=== PATIENT | female | born 1955 | race Caucasian/White ===

== ENCOUNTER 2021-08-31 12:28 | Inpatient (IN) | payer MEDICARE, BC ==
[~2021-08-31] VITALS: Ht 147.3 cm; Wt 51.3 kg
--- NOTE | 2021-08-31 12:50 | NUR ---
Note simeon in EDM - 08/31/21 at 1459 by ROSS PATIENT CAME INTO THE ED FROM HOME WITH A C/C OF NAUSEA AND VOMITING FOR THE PAST 2 DAYS. PATIENT HAS NO KNOWN MEDICAL HISTORY. PATIENT SKIN LOOKS DRY UPON ASSESSMENT. PATIENT IS IN GOWN, ON MONITORS, AAOX4, NO VOMITING SINCE BEING ADMITTED TO THE ED, BUT REPORTS NAUSEA. 20 G ESTABLISHED IN HER RIGHT WRIST AND LINE IS PATENT. PENDING MD ORDERS.
--- NOTE | 2021-08-31 13:32 | NUR ---
EKG PERFOMED AT BEDSIDE.
[2021-08-31] MEDS ORDERED: FENTANYL CITRATE 100 MCG/2 ML AMPUL IV ONE (13:45)
[2021-08-31] MEDS ORDERED: IV NORMAL SALINE 1000 ML BAG IV ONE (13:45)
[2021-08-31] MEDS ORDERED: ONDANSETRON 4 MG/2 ML VIAL IV ONE (13:45)
[2021-08-31] MEDS ORDERED: ONDANSETRON 4 MG/2 ML VIAL ONE (14:06)
[2021-08-31] MEDS ORDERED: FENTANYL CITRATE 100 MCG/2 ML AMPUL ONE (14:06)
[2021-08-31 14:34] LABS: HEMATOCRIT 39.8 % (31.2-41.9); MEAN CORPUSCULAR HEMOGLOBIN 29.8 uug (24.7-32.8); MEAN CORPUSCULAR VOLUME 88.3 fL (75.5-95.3); PLATELET COUNT (AUTO) 215 K/uL (179-408)
--- NOTE | 2021-08-31 14:38 | NUR ---
PATIENT DISCHARGED HOME WIHT LEG BAG, AND TO FOLLOW UP WITH UROLOGIST IN THE NEXT COUPLE OF DAYS AND TO RETURN TO THE ED IF THE PROBLEM PERSISTS. PATIENT IS AMBULATORY WITH A STEADY GAIT, AAOX4, DENIES SHORTNESS OF BREATH, NAD NOTED, DENIES N/V/D. IV DC'D, ARMBAND REMOVED. PT IS BEING ACCOMPANIED BY DAUGHTER TO GO HOME WITH BELONGINGS.
[2021-08-31 14:39] LABS: CREATININE 4.4 mg/dL (0.6-1.3); POTASSIUM 4.6 mmol/L (3.5-5.1)
[2021-08-31 14:53] LABS: BILIRUBIN,DIRECT 0.2 mg/dL (0.0-0.2); BILIRUBIN,TOTAL 0.9 mg/dL (0.2-1.0); TOTAL PROTEIN, SERUM 5.3 g/dL (6.4-8.2)
[2021-08-31] MEDS ORDERED: VANCOMYCIN 1G/D5W 200 ML PIGGYBACK IV ONE (15:00)
[2021-08-31] MEDS ORDERED: PIPERACILLIN SODIUM/TAZOBACTAM 3.375 G in IV DEXTROSE 5% 50 ML IV ONE (15:00)
[2021-08-31] MEDS ORDERED: METRONIDAZOLE 500 MG/NS 100 ML PIGGYBACK IV ONE (15:00)
[2021-08-31] MEDS ORDERED: IV NS 1000 ML 1,000 ML IV ONE (15:00)
--- NOTE | 2021-08-31 15:20 | NUR ---
PATIENT TO CT SCAN.
[2021-08-31 15:22] LABS: *OCCULT BLOOD STOOL POSITIVE (NEGATIVE)
[2021-08-31] MEDS ORDERED: METRONIDAZOLE 500 MG/NS 100ML 100 ML IV ONE ×2 (15:36→23:06)
[2021-08-31] MEDS ORDERED: VANCOMYCIN IV 200 ML ONE (15:37)
[2021-08-31] MEDS ORDERED: PIPERACILLIN/TAZOBACTAM/D5W 50 ML IV ONE (15:37)
--- NOTE | 2021-08-31 15:40 | NUR ---
PATIENT RETURNED FROM CT SCAN. PENDING RESULTS
--- NOTE | 2021-08-31 15:43 | NUR ---
1ST ANTIBIOITIC OUT OF THREE ADMINISTERED.
[2021-08-31] MEDS ORDERED: MAGNESIUM HYDROXIDE 30 ML LIQUID UDC PO PRN (15:45)
[2021-08-31] MEDS ORDERED: Z GUARD REMEDY PASTE 57 GM TUBE TOP PRN (15:45)
[2021-08-31] MEDS ORDERED: ONDANSETRON 4 MG/2 ML VIAL IV PRN (15:45)
[2021-08-31] MEDS ORDERED: IV NS 1000 ML 1,000 ML IV PRN ×2 (15:45→18:46)
--- NOTE | 2021-08-31 15:56 | NUR ---
2ND OUT OF THREE ANTIBIOTICS ADMINISTERED.
--- NOTE | 2021-08-31 16:49 | NUR ---
3 OUT OF 3 ANTIBIOTICS ADMINISTERED.
--- NOTE | 2021-08-31 17:04 | NUR ---
PATIENT REPORTS HAVING MULTIPLE STOOLS. WILL NOTIFY
[2021-08-31] MEDS ORDERED: METOCLOPRAMIDE HCL 10 MG/2 ML VIAL IV PRN (17:30)
[2021-08-31] MEDS ORDERED: LOPERAMIDE HCL 2 MG CAPSULE PO ONE (18:00)
--- NOTE | 2021-08-31 18:00 | NUR ---
STOOL SAMPLE COLLECETED AND SENT TO LAB FOR TESTING. PENDING RESULTS
[2021-08-31] MEDS ORDERED: LOPERAMIDE HCL 2 MG CAPSULE ONE (18:08)
--- NOTE | 2021-08-31 18:16 | NUR ---
ANTIDIARRHEAL MEDICATION ADMINISTERED. WILL OBSERVE FOR CONTINUING OF STOOLS.
--- NOTE | 2021-08-31 19:12 | NUR ---
REPORT GIVEN TO TERENCE, ALL QUESTIONS ANSWERED, CONTINUITY OF CARE CONTINUED.
[2021-08-31] MEDS ORDERED: PANTOPRAZOLE SODIUM 40 MG VIAL ONE (23:06)
[2021-08-31] MEDS: METRONIDAZOLE 500 MG/NS 100ML 500 MG in PREMIXED 1 EACH IV SCH (23:15)
[2021-08-31] MEDS: PANTOPRAZOLE SODIUM 40 MG VIAL IV SCH (23:15)
[2021-08-31] MEDS: ACIDOPHILUS/BULGARICUS CHEW TAB PO SCH (23:28)
--- NOTE | 2021-09-01 00:40 | NUR ---
Pt started on 1L NS continous infusion at 100mls/hr due to bp of 96/45
[2021-09-01] MEDS ORDERED: METOCLOPRAMIDE HCL 10 MG/2 ML VIAL ONE (00:51)
--- NOTE | 2021-09-01 01:00 | NUR ---
Pt bp elevated to 107/52, 20 minutes after infusion started, will continue to assess
[2021-09-01] MEDS: ACIDOPHILUS/BULGARICUS CHEW TAB PO SCH ×3 (06:00→23:20)
[2021-09-01] MEDS: METRONIDAZOLE 500 MG/NS 100ML 500 MG in PREMIXED 1 EACH IV SCH ×3 (06:00→23:30)
[2021-09-01 07:16] LABS: HEMATOCRIT 40.9 % (31.2-41.9); MEAN CORPUSCULAR HEMOGLOBIN 29.8 uug (24.7-32.8); MEAN CORPUSCULAR VOLUME 89.4 fL (75.5-95.3); PLATELET COUNT (AUTO) 197 K/uL (179-408)
[2021-09-01 07:22] LABS: BILIRUBIN,DIRECT 0.2 mg/dL (0.0-0.2); BILIRUBIN,TOTAL 0.8 mg/dL (0.2-1.0); CREATININE 4.4 mg/dL (0.6-1.3); MAGNESIUM 2.8 mg/dL (1.8-2.4); POTASSIUM 4.8 mmol/L (3.5-5.1)
[2021-09-01] MEDS ORDERED: METRONIDAZOLE 500 MG/NS 100ML 100 ML IV ONE ×3 (08:44→23:33)
[2021-09-01] MEDS: PANTOPRAZOLE SODIUM 40 MG VIAL IV SCH ×2 (09:00→23:30)
[2021-09-01] MEDS ORDERED: CIPROFLOXACIN IV 400 MG in PREMIXED 1 EACH IV SCH (09:00)
[2021-09-01] MEDS: CALCIUM CARBONATE 500 MG TABLET PO SCH (09:02)
--- NOTE | 2021-09-01 09:04 | NUR ---
pt's heplock stopped working, unable to heplock the pt. called nsg supervisor display fabrication for midline
--- NOTE | 2021-09-01 10:19 | NUR ---
rolando Dukes placed midline right uper arm
[2021-09-01] MEDS ORDERED: PANTOPRAZOLE SODIUM 40 MG VIAL ONE ×2 (10:31→23:32)
--- NOTE | 2021-09-01 11:30 | NUR ---
PER SHLOMO HAN, CORPORATE GENERAL MANAGER, PT WILL GOING FOR COLONOSCOPY TOMORROW WITH DR. OCAMPO.
--- NOTE | 2021-09-01 11:30 | NUR ---
SHLOMO HAN CAR COOPER AT BEDSIDE.
[2021-09-01] MEDS: VANCOMYCIN FOR PO/GT/NG USE PO SCH ×2 (12:14→18:33)
[2021-09-01] MEDS ORDERED: IV D5/ 0.9% NACL 1,000 ML IV PRN (16:15)
--- NOTE | 2021-09-01 18:30 | NUR ---
clear liquid provided for pt. pt not having apetite.
--- NOTE | 2021-09-01 19:19 | NUR ---
pt remained comfortable in bed the whole er stay. perineal hygine provided multiple time, the last one at 1700 with loose yellow stool. c-diff precautions implemented.
--- NOTE | 2021-09-01 22:31 | NUR ---
Pt refusinf rectal tube and cartagena catheter insertion.
--- NOTE | 2021-09-01 22:35 | NUR ---
Report given to Em ALLISON
--- NOTE | 2021-09-01 22:37 | NUR ---
Em ALLISON from 3rd floor send home due emergency, pt will continue to receive care in ER
--- NOTE | 2021-09-01 23:30 | NUR ---
Pt placed in hospital bed, comfortable in bed.
[2021-09-02] MEDS: VANCOMYCIN FOR PO/GT/NG USE PO SCH ×5 (00:37→23:22)
--- NOTE | 2021-09-02 01:52 | NUR ---
Pt in bed asleep, no distress noted
--- NOTE | 2021-09-02 04:37 | NUR ---
Pt still asleep in bed, no distress noted
[2021-09-02] MEDS ORDERED: METRONIDAZOLE 500 MG/NS 100ML 100 ML IV ONE (06:38)
[2021-09-02] MEDS: METRONIDAZOLE 500 MG/NS 100ML 500 MG in PREMIXED 1 EACH IV SCH ×3 (06:39→21:03)
[2021-09-02] MEDS: ACIDOPHILUS/BULGARICUS CHEW TAB PO SCH ×3 (06:39→21:03)
[2021-09-02 06:50] VITALS: BP 112/41
[2021-09-02 08:08] LABS: HEMATOCRIT 37.1 % (31.2-41.9); MEAN CORPUSCULAR HEMOGLOBIN 29.5 uug (24.7-32.8); PLATELET COUNT (AUTO) 177 K/uL (179-408)
[2021-09-02 08:21] LABS: CREATININE 4.1 mg/dL (0.6-1.3); POTASSIUM 4.7 mmol/L (3.5-5.1)
[2021-09-02] MEDS: PANTOPRAZOLE SODIUM 40 MG VIAL IV SCH (09:16)
[2021-09-02] MEDS: CALCIUM CARBONATE 500 MG TABLET PO SCH (09:16)
[2021-09-02] MEDS ORDERED: GOLYTELY 4000 ML BOTTLE PO ONE (11:00)
[2021-09-02 11:10] VITALS: BP 115/54
[2021-09-02] MEDS: SODIUM BICARBONATE 8.4% 50 MEQ in IV NS 1000 ML 1,000 ML IV PRN ×2 (13:06→23:19)
[2021-09-02 15:09] VITALS: BP 112/59
[2021-09-02 20:00] VITALS: BP 137/61
[2021-09-02] MEDS: PANTOPRAZOLE ORAL SUSPENSION 40 MG SUSPDR.PKT PO SCH (20:53)
--- NOTE | 2021-09-02 22:30 | NUR ---
Received pt resting in bed. AAO x4. No acute distress noted. Denies pain/ discomfort. Denies N/V. Pt still drinking Golytely for her colonoscopy tomorrow. NPO except meds after midnight. CHEPE midline, patent and intact. Safety measures maintained. Call light and personal items within reach. Will continue to monitor.
--- NOTE | 2021-09-03 | NUR ---
Notified [facility] that pt unable to finish Golytely, and FILLER PICKER stated that it is okay not to finish. Pt to be NPO.
[2021-09-03 04:00] VITALS: BP 125/64
[2021-09-03] MEDS: VANCOMYCIN FOR PO/GT/NG USE PO SCH ×3 (05:16→17:36)
[2021-09-03] MEDS: METRONIDAZOLE 500 MG/NS 100ML 500 MG in PREMIXED 1 EACH IV SCH ×3 (05:16→22:11)
[2021-09-03] MEDS: ACIDOPHILUS/BULGARICUS CHEW TAB PO SCH ×3 (05:16→22:13)
[2021-09-03 08:09] LABS: HEMATOCRIT 37.6 % (31.2-41.9); MEAN CORPUSCULAR HEMOGLOBIN 29.8 uug (24.7-32.8); MEAN CORPUSCULAR VOLUME 89.1 fL (75.5-95.3); PLATELET COUNT (AUTO) 143 K/uL (179-408)
[2021-09-03 08:44] LABS: CREATININE 3.3 mg/dL (0.6-1.3); POTASSIUM 4.2 mmol/L (3.5-5.1)
[2021-09-03] MEDS: PANTOPRAZOLE ORAL SUSPENSION 40 MG SUSPDR.PKT PO SCH ×2 (09:11→20:08)
[2021-09-03] MEDS: CALCIUM CARBONATE 500 MG TABLET PO SCH (09:11)
[2021-09-03 12:00] VITALS: BP 116/60
--- NOTE | 2021-09-03 13:06 | NUR ---
Patient is alert and oriented x 4, denies of any pain. on NPO except meds and patient is compliant, patient refused to finish GOLYTELY and MD is aware. Consent for Colonoscopy has been signed. Picked up by OR nurse for colonoscopy. CHEPE midline intact.
[2021-09-03] MEDS ORDERED: PROPOFOL 200 MG/20 ML BOTTLE IV ONE (14:29)
[2021-09-03] MEDS ORDERED: LIDOCAINE-MPF 2% 5 ML VIAL IJ ONE (14:29)
--- NOTE | 2021-09-03 15:11 | NUR ---
Patient back to the unit from colonoscopy procedure, no new order, patient will be on clear liquid diet per Chantal RODAS and will continue to monitor. Family at bedside and was able to speak to Chantal Arellano NP.
--- NOTE | 2021-09-03 15:17 | NUR ---
Per Dr. Gomes to resume all meds.
[2021-09-03 16:00] VITALS: BP 132/65
[2021-09-03] MEDS: SODIUM BICARBONATE 8.4% 50 MEQ in IV NS 1000 ML 1,000 ML IV PRN (17:22)
[2021-09-03 20:33] VITALS: BP 121/59
[2021-09-04] MEDS: VANCOMYCIN FOR PO/GT/NG USE PO SCH ×4 (00:12→17:59)
[2021-09-04] MEDS: SODIUM BICARBONATE 8.4% 50 MEQ in IV NS 1000 ML 1,000 ML IV PRN (03:55)
[2021-09-04] MEDS: ACIDOPHILUS/BULGARICUS CHEW TAB PO SCH ×3 (05:00→22:26)
[2021-09-04] MEDS: METRONIDAZOLE 500 MG/NS 100ML 500 MG in PREMIXED 1 EACH IV SCH (05:00)
[2021-09-04 08:04] LABS: MEAN CORPUSCULAR HEMOGLOBIN 29.7 uug (24.7-32.8); PLATELET COUNT (AUTO) 112 K/uL (179-408)
[2021-09-04 08:18] LABS: CREATININE 2.2 mg/dL (0.6-1.3); POTASSIUM 3.7 mmol/L (3.5-5.1)
[2021-09-04] MEDS: PANTOPRAZOLE ORAL SUSPENSION 40 MG SUSPDR.PKT PO SCH ×2 (09:13→20:50)
[2021-09-04] MEDS: CALCIUM CARBONATE 500 MG TABLET PO SCH (09:13)
[2021-09-04 11:26] LABS: BAND % (MANUAL) 7 % (0-10); LYMPHOCYTES % (MANUAL) 15 % (20-40); MONOCYTES % (MANUAL) 5 % (2-10); MYELOCYTES % 1 % (0-0); NEUTROPHILS % (MANUAL) 72 % (42-75)
[2021-09-04 11:34] VITALS: BP 120/66
[2021-09-04] MEDS: IV D5 1/2 NS 1000 ML 1,000 ML IV PRN ×2 (12:02→22:54)
[2021-09-04] MEDS: METRONIDAZOLE 500 MG TABLET PO SCH ×2 (13:03→22:26)
[2021-09-04 16:00] VITALS: BP 113/52
--- NOTE | 2021-09-04 16:06 | NUR ---
pt is a little anxious about her condition and wants to talk to psychiatrist. informed lab aid keh with order for psych consult and xanax 0.25mg q6 prn noted and carried out. patient made aware.
[2021-09-04] MEDS: ENSURE ENLIVE (VAN) 240 ML LIQUID PO SCH (17:59)
--- NOTE | 2021-09-04 18:36 | NUR ---
pt awake in bed, family visiting at this time. no resp distress. denies pain or sob. provided calm and quiet environment. needs attended to. on flagyl and voncocin po. no adverse/allergic rxn noted. denies nausea or vomiting. fc intact draining yellow urine. safety measures in place. needs attended to. cont to monitor.
--- NOTE | 2021-09-04 19:30 | NUR ---
RECEIVED PT AWAKE, ALERT AND ORIENTEDX4. PT IN NO ACUTE DISTRESS. IV INTACT. SAFETY AND COMFORT PROVIDED. WILL CONTINUE TO MONITOR. PT FAMILY AT BEDSIDE. TALKED WITH FAMILY MEMBER REGARDING UPDATE WITH THEIR MOM.
[2021-09-04] MEDS: ALPRAZOLAM 0.25 MG TABLET PO PRN (20:50)
--- NOTE | 2021-09-04 21:50 | NUR ---
PT GIVEN XANAX AT 2050H FOR ANXIETY AND PT REQUESTED FOR IT. AFTER AN HOUR PT STATED SHE FELT BETTER. PT STABLE. WILL CONTINUE TO MONITOR.
[2021-09-04 23:02] VITALS: BP 117/52
[2021-09-05] MEDS: VANCOMYCIN FOR PO/GT/NG USE PO SCH ×5 (01:01→23:09)
[2021-09-05] MEDS: ACETAMINOPHEN 325 MG TABLET PO PRN ×2 (05:37→20:25)
[2021-09-05] MEDS: ACIDOPHILUS/BULGARICUS CHEW TAB PO SCH ×3 (05:37→21:15)
[2021-09-05] MEDS: METRONIDAZOLE 500 MG TABLET PO SCH ×3 (05:37→21:15)
--- NOTE | 2021-09-05 06:34 | NUR ---
PT GIVEN TYLENOL PRN AT 0537H FOR PAIN. PT TOLERATED IT WELL.
--- NOTE | 2021-09-05 06:35 | NUR ---
PT SLEPT INTERMITTENTLY. IV INTACT. PT ON GTUBE FEEDING AND TOLERATING WELL. PT ON 3L NASAL CANNULA. PT TURNED AND REPOSITIONED. SAFETY AND COMFORT PROVIDED. ALL NEEDS ARE MET. WILL ENDORSE TO INCOMING NURSE FOR CONTINUITY OF CARE. Addendum: 09/05/21 at 0655 by OLY CARRASCO RN WRONG PT
[2021-09-05 06:46] VITALS: BP 118/69
--- NOTE | 2021-09-05 06:56 | NUR ---
PT SLEPT INTERMITTENTLTY. PT IN NO ACUTE DISTRESS. PRESCRIBED MEDICATION GIVEN AND PT TOLERATED IT WELL. PT GIVEN TYLENOL PRN AT 0537H. IV INTACT. SAFETY AND COMFORT PROVIDED. WILL ENDORSE TO INCOMING NURSE FOR CONTINUITY OF CARE.
[2021-09-05 07:23] LABS: HEMATOCRIT 41.3 % (31.2-41.9); MEAN CORPUSCULAR HEMOGLOBIN 29.2 uug (24.7-32.8); MEAN CORPUSCULAR VOLUME 86.9 fL (75.5-95.3); PLATELET COUNT (AUTO) 99 K/uL (179-408)
--- NOTE | 2021-09-05 07:30 | NUR ---
received awake watching tv. no resp distress. denies pain or sob. cartagena intact draining yellow urine. safety measures in place. cont to monitor.
[2021-09-05 07:32] LABS: CREATININE 1.7 mg/dL (0.6-1.3); POTASSIUM 3.3 mmol/L (3.5-5.1)
[2021-09-05] MEDS: METOCLOPRAMIDE HCL 5 MG TABLET PO PRN ×2 (08:44→20:25)
[2021-09-05] MEDS ORDERED: CALCIUM CARBONATE 500 MG TABLET PO SCH (09:00)
[2021-09-05] MEDS ORDERED: POTASSIUM CHLORIDE 10 MEQ TAB.PRT.SR PO ONE (09:30)
[2021-09-05] MEDS: IV D5 1/2 NS 1000 ML 1,000 ML IV PRN (10:12)
[2021-09-05] MEDS: PANTOPRAZOLE ORAL SUSPENSION 40 MG SUSPDR.PKT PO SCH ×2 (10:46→20:54)
[2021-09-05] MEDS: CALCIUM CARBONATE 500 MG TABLET PO SCH (10:46)
[2021-09-05] MEDS: ENSURE ENLIVE (VAN) 240 ML LIQUID PO SCH ×2 (10:47→17:05)
[2021-09-05 12:00] VITALS: BP 106/63
[2021-09-05 16:00] VITALS: BP 114/61
--- NOTE | 2021-09-05 17:43 | NUR ---
family was here this morning and update on condition. full stack software developer cathi also spoke with family
--- NOTE | 2021-09-05 18:51 | NUR ---
resting in bed watching tv. had a good visit with friend this afternoon. denies pain or sob. no acute distress. safety measures kept. cont to monitor.
[2021-09-05 20:09] VITALS: BP 110/47
[2021-09-05] MEDS: DIFICID 200 MG TABLET PO SCH (21:15)
[2021-09-05] MEDS: ALPRAZOLAM 0.25 MG TABLET PO PRN (23:08)
[2021-09-06 04:12] VITALS: BP 115/50
[2021-09-06] MEDS: ACIDOPHILUS/BULGARICUS CHEW TAB PO SCH ×3 (06:04→21:39)
[2021-09-06] MEDS: VANCOMYCIN FOR PO/GT/NG USE PO SCH ×3 (06:04→17:33)
[2021-09-06] MEDS: METRONIDAZOLE 500 MG TABLET PO SCH ×3 (06:04→21:39)
[2021-09-06 08:19] LABS: HEMATOCRIT 43.5 % (31.2-41.9); MEAN CORPUSCULAR HEMOGLOBIN 29.7 uug (24.7-32.8); MEAN CORPUSCULAR VOLUME 87.8 fL (75.5-95.3); PLATELET COUNT (AUTO) 124 K/uL (179-408)
[2021-09-06 08:21] LABS: CREATININE 1.4 mg/dL (0.6-1.3); POTASSIUM 4.1 mmol/L (3.5-5.1)
[2021-09-06] MEDS: CALCIUM CARBONATE 500 MG TABLET PO SCH (10:13)
[2021-09-06] MEDS: DIFICID 200 MG TABLET PO SCH ×2 (10:13→20:23)
[2021-09-06] MEDS: CALCIUM CARB/VITAMIN D 500MG-200UNITS TABLET PO SCH (10:13)
[2021-09-06] MEDS: PANTOPRAZOLE ORAL SUSPENSION 40 MG SUSPDR.PKT PO SCH ×2 (10:37→20:23)
[2021-09-06] MEDS: ENSURE ENLIVE (VAN) 240 ML LIQUID PO SCH ×2 (11:30→17:34)
[2021-09-06] MEDS: IV D5 1/2 NS 1000 ML 1,000 ML IV PRN ×2 (11:51→21:38)
[2021-09-06 12:00] VITALS: BP 119/62
[2021-09-06 16:00] VITALS: BP 116/60
--- NOTE | 2021-09-06 17:00 | NUR ---
REMAIN ON CONTACT ISOLATION AND PRECAUTION HAS MULTIPLE DIARRHEA EPISODES ASSISTED WITH CLEAN WAS ABLE TO AMB ULATE WITH THE PHYSICAL THERAPIST WITH [facility] END[facility] IVF REMAINS IN PROGRESS ORDERED VIA MIDLINE RIGH5T UPPER ARM WITH NO S/S OF IN FILTRATION AT THIS TIME
--- NOTE | 2021-09-06 20:30 | NUR ---
Received patient lying in bed watching tv. AOX4. No acute distress noted at this time. IV midline on Right UA running D5 1/2 NS running at 100cc/hr. Reynolds catheter draining yellow colored urine. All due medications given and tolerated well. Safety and comfort measures initiated. Bed alarm activated, call light button and bedside table within reach. Will continue to monitor.
[2021-09-06 21:31] VITALS: BP 109/49
[2021-09-06] MEDS: ALPRAZOLAM 0.25 MG TABLET PO PRN (22:01)
[2021-09-07] MEDS: VANCOMYCIN FOR PO/GT/NG USE PO SCH ×5 (00:10→23:49)
[2021-09-07] MEDS: METRONIDAZOLE 500 MG TABLET PO SCH ×3 (05:01→21:44)
[2021-09-07] MEDS: ACIDOPHILUS/BULGARICUS CHEW TAB PO SCH ×3 (05:01→21:44)
--- NOTE | 2021-09-07 06:36 | NUR ---
Patient slept intermittently through the night. Patient reports abdominal pain, however, refuses to request for pain medication and resorted to non-pharmacological techniques instead. IV on right U.A still running D5 1/2 NS at 100cc/hr. Reynolds catheter draining yellow colored urine. All due medications were given and tolerated well. Patient transferred to Room 320. Will endorse to incoming nurse.
[2021-09-07 06:59] LABS: HEMATOCRIT 41.3 % (31.2-41.9); MEAN CORPUSCULAR HEMOGLOBIN 29.6 uug (24.7-32.8); MEAN CORPUSCULAR VOLUME 88.4 fL (75.5-95.3); PLATELET COUNT (AUTO) 161 K/uL (179-408)
[2021-09-07 07:10] LABS: CREATININE 1.3 mg/dL (0.6-1.3); MAGNESIUM 1.6 mg/dL (1.8-2.4); POTASSIUM 3.9 mmol/L (3.5-5.1)
[2021-09-07] MEDS: IV D5 1/2 NS 1000 ML 1,000 ML IV PRN (07:28)
[2021-09-07] MEDS: CALCIUM CARB/VITAMIN D 500MG-200UNITS TABLET PO SCH (09:18)
[2021-09-07] MEDS: CALCIUM CARBONATE 500 MG TABLET PO SCH (09:18)
[2021-09-07] MEDS: PANTOPRAZOLE ORAL SUSPENSION 40 MG SUSPDR.PKT PO SCH ×2 (09:20→20:43)
[2021-09-07] MEDS: ENSURE ENLIVE (VAN) 240 ML LIQUID PO SCH ×3 (09:23→17:38)
[2021-09-07] MEDS: DIFICID 200 MG TABLET PO SCH ×2 (09:50→20:43)
--- NOTE | 2021-09-07 10:13 | NUR ---
MAGNESSIUM LEVEL IS 1.5 SEEN BY ROBYN LEROY DAMAGE ASSESSOR WITH ORDERS AND NOTED ROBYN LEROY ALSO WANTS PATIENT PORTER CATH DISCONTINUED AND NOTED.
[2021-09-07] MEDS: MAGNESIUM SULFATE/D5W 100 ML IV SCH ×2 (10:31→12:39)
[2021-09-07 11:41] VITALS: BP 117/59
[2021-09-07] MEDS ORDERED: HYDROCODONE/APAP 5-325MG TABLET PO PRN (13:45)
[2021-09-07] MEDS ORDERED: DICYCLOMINE HCL 20 MG TABLET PO PRN (13:45)
--- NOTE | 2021-09-07 14:00 | NUR ---
PATIENT HAS AN ORDER FOR DISCHARGE TODAY BUT PATIENT AND HER DAUGHTER IS NOT AGREEING TO BE DISCHARGED TODAY AND THEY SPOKE WITH ROBYN LEROY AND THE PLAN IS THAT THE FAMILY WILL GO AND LOOK AT [facility] AND WILL THEN MAKE A DECISION WEATHER PATIENT WILL BE GOING HOME OR TO SNF IN AM.
[2021-09-07 16:26] VITALS: BP 113/60
--- NOTE | 2021-09-07 16:30 | NUR ---
CALL RECEIVED FROM STREET INSPECTOR ANAHI STATED THAT PATIENTS FAMILY HAS AGREED FOR PATIENT TO BE DISCHARGED TO [facility] TOMORROW WILL BE PICKED UP ABOUT 1100 AM BY [facility]
[2021-09-07] MEDS: PEDIATRIC ORAL ELECTROLYTE 237 ML BOTTLE PO ONE ×2 (17:00→18:18)
--- NOTE | 2021-09-07 17:53 | NUR ---
OFFERED PATIENT DYCICLOMINE ORDERED FOR ABDOMINAL SPASMS A PRN ORDER STATED DOES NOT NEED IT NOW WILL LET ME KNOW WHEN SHE NEEDS IT
--- NOTE | 2021-09-07 17:55 | NUR ---
SHE IS EATING SOUP AND FOOD BROUGHT IN BY HER FAMILY AT THE BEDSIDE WITH NO NAUSEA OR VOMITING AT THIS TIME.
[2021-09-07 20:30] VITALS: BP 107/68
[2021-09-07 20:40] VITALS: BP 115/73
[2021-09-07] MEDS: ALPRAZOLAM 0.25 MG TABLET PO PRN (22:20)
--- NOTE | 2021-09-07 22:26 | NUR ---
alpazolam dose given as per request.
[2021-09-08 04:35] VITALS: BP 115/73
--- NOTE | 2021-09-08 05:04 | NUR ---
DR Babb informed about the patient bm with blood noted.with no further orders, will continue to monitor.vital signs checked and recorded
[2021-09-08] MEDS: METRONIDAZOLE 500 MG TABLET PO SCH (06:00)
[2021-09-08] MEDS: VANCOMYCIN FOR PO/GT/NG USE PO SCH (06:08)
[2021-09-08] MEDS: ACIDOPHILUS/BULGARICUS CHEW TAB PO SCH (06:08)
--- NOTE | 2021-09-08 06:13 | NUR ---
flagyl dose not available. will request with the pharmacy
[2021-09-08 07:20] LABS: HEMATOCRIT 43.4 % (31.2-41.9); MEAN CORPUSCULAR HEMOGLOBIN 29.2 uug (24.7-32.8); MEAN CORPUSCULAR VOLUME 87.7 fL (75.5-95.3); PLATELET COUNT (AUTO) 258 K/uL (179-408)
[2021-09-08 07:24] LABS: CREATININE 1.1 mg/dL (0.6-1.3); POTASSIUM 4.4 mmol/L (3.5-5.1)
[2021-09-08] MEDS: PANTOPRAZOLE ORAL SUSPENSION 40 MG SUSPDR.PKT PO SCH (08:53)
[2021-09-08] MEDS: CALCIUM CARB/VITAMIN D 500MG-200UNITS TABLET PO SCH (08:53)
[2021-09-08] MEDS: DIFICID 200 MG TABLET PO SCH (08:53)
[2021-09-08] MEDS: ENSURE ENLIVE (VAN) 240 ML LIQUID PO SCH (08:54)
[2021-09-08] MEDS: CALCIUM CARBONATE 500 MG TABLET PO SCH (08:54)
--- NOTE | 2021-09-08 10:01 | NUR ---
CALLED [facility] AND SPOKE WITH LUCIE ALLISON, REPORT WAS GIVEN ALL QUESTIONS ANSWERED. ALL PERTINENT INFORMATION GIVEN.
--- NOTE | 2021-09-08 10:31 | NUR ---
dicharge instructions given to patient, patient states understanding. inventory list verified with patient. all paperwork signed. patient reminded to follow MD instructions "Please continue Dificid 200mg q12h, last dose 09/15/21. Please continue vancomycin 09/21/21. Please follow up with Gi specialist within 2 weeks for re-evaluation. may need prolonged vancomycin course depending on resolution of symptoms. Continue to hydrate very well and supplement with gatorade or other electrolyte drink such as pediatelyte. Start with BRAT diet and move to bland diet and advance as tolerated. Please return to emergency department immediately if any new or worsening/concerning symptoms, unable to eat or drink." patient states understanding. explained that [facility] ambulance will cotton picker patient and take her to [facility].
--- NOTE | 2021-09-08 11:15 | NUR ---
APA building contractor in unit, report given to emt all questions answered. patient left with v/s wnl, on contact precautions d/t c-diff and midline to right upper arm per md order.
[2021-09-08 11:22] VITALS: BP 121/75
== END 2021-09-08 11:20 | DRG 871 ==
LOC: ER 12:28 → TRANSITION 20:03 → TELE3 09-01 22:15 → TRANSITION 09-01 23:16 → TELE3 09-02 06:15 → MEDSURG3 09-02 08:50
PROVIDERS: ADMIT Nurse Practitioner Acute Care; ATTEND Nurse Practitioner Acute Care
PROC: 05HB33Z Insertion of Infusion Device into Right Basilic Vein, Percutaneous Approach (ICD-10-PCS; 2021-09-01)
PROC: 0DJD8ZZ Inspection of Lower Intestinal Tract, Via Natural or Artificial Opening Endoscopic (ICD-10-PCS; principal; 2021-09-03)
DX: A41.9 Sepsis, unspecified organism (principal); N17.0 Acute kidney failure with tubular necrosis; E43 Unspecified severe protein-calorie malnutrition; E87.2 Acidosis; A04.72 Enterocolitis due to Clostridium difficile, not specified as recurrent; E87.1 Hypo-osmolality and hyponatremia; K92.2 Gastrointestinal hemorrhage, unspecified; E86.0 Dehydration; E86.1 Hypovolemia; E83.51 Hypocalcemia; E88.09 Other disorders of plasma-protein metabolism, not elsewhere classified; R74.01 Elevation of levels of liver transaminase levels; Z20.822 Contact with and (suspected) exposure to COVID-19; F43.22 Adjustment disorder with anxiety
CPT/HCPCS: 36415; 70030-TC; 76770; 83605; 83615; 83690; 83735; 84100; 85025; 85730; 86625; 86850; 86900; 86901; 87046; 93005; 97161; A4217; A4663; C9113; G0378; J0744; J2405; J2543; J2765; J3010; J3370; J3475; J3490; J7030; J8597

== ENCOUNTER 2021-09-18 16:27 | Inpatient (IN) | payer MEDICARE, BC ==
[~2021-09-18] VITALS: Ht 147.3 cm; Wt 49.9 kg
[2021-09-18] MEDS ORDERED: IV NORMAL SALINE 1000 ML BAG IV ONE ×2 (16:45→17:15)
--- NOTE | 2021-09-18 16:51 | NUR ---
Pt refusing lab draw. States having had blood drawn before leaving [facility]. Called and spoke with Jenniffer, labs were drawn but not yet resulted. Will fax us results as soon as they become available.
[2021-09-18] MEDS ORDERED: ONDANSETRON 4 MG/2 ML VIAL IV ONE (17:15)
--- NOTE | 2021-09-18 17:35 | NUR ---
IV FLUIDS WITHHELD AT THIS TIME PER MD ORDER TILCHF IS RULED OUT.
--- NOTE | 2021-09-18 17:40 | NUR ---
Lab report received from [facility]. Report given to Provider.
[2021-09-18] MEDS ORDERED: IV NORMAL SALINE 250 ML IV ONE (18:23)
[2021-09-18] MEDS ORDERED: IOHEXOL 350 100 ML INFUS..BTL ONE (18:23)
[2021-09-18] MEDS ORDERED: SWABABLE VALVE TRANSFER SET EA MC ONE (18:23)
[2021-09-18] MEDS ORDERED: LORAZEPAM 2 MG/1 ML VIAL IV ONE (18:45)
[2021-09-18] MEDS ORDERED: PANT40TA49 PO (19:28)
[2021-09-18] MEDS ORDERED: VANCOMYCIN SUSP PO (19:28)
[2021-09-18] MEDS ORDERED: ALPR0.255 PO (19:28)
[2021-09-18] MEDS ORDERED: HYDR-3972 PO (19:28)
[2021-09-18] MEDS ORDERED: CALC-343 PO (19:28)
[2021-09-18] MEDS ORDERED: ACET-2154 PO (19:28)
[2021-09-18] MEDS ORDERED: LACT1CAP89 PO (19:28)
[2021-09-18] MEDS ORDERED: VANC125C11 GT (19:28)
[2021-09-18] MEDS ORDERED: DICY20TA11 PO (19:28)
[2021-09-18] MEDS ORDERED: LIDOCAINE PATCH TP (19:28)
[2021-09-18] MEDS ORDERED: CALC-168 PO (19:28)
[2021-09-18] MEDS ORDERED: LORAZEPAM 2 MG/1 ML VIAL ONE (21:30)
[2021-09-18] MEDS ORDERED: MORPHINE SULFATE 2 MG/1 ML DISP.SYRIN IV PRN (21:30)
[2021-09-18] MEDS ORDERED: HYDROCODONE/APAP 5-325MG TABLET PO PRN (21:30)
[2021-09-18] MEDS ORDERED: HYDROCORTISONE SOD SUCCINATE 100 MG/2 ML VIAL IV ONE (21:30)
[2021-09-18] MEDS ORDERED: DICYCLOMINE HCL 20 MG TABLET PO SCH (21:30)
[2021-09-18] MEDS ORDERED: DOXYCYCLINE HYCLATE IV 100 MG in IV DEXTROSE 5% 100 ML IV ONE (21:30)
[2021-09-18] MEDS ORDERED: ONDANSETRON 4 MG/2 ML VIAL IV PRN (21:30)
[2021-09-18] MEDS ORDERED: VANCOMYCIN PO SCH (21:30)
[2021-09-18] MEDS ORDERED: ACETAMINOPHEN 325 MG TABLET-SA PATIENTS-PAIN ONLY PO PRN (21:30)
[2021-09-18] MEDS ORDERED: METRONIDAZOLE 500 MG/NS 100 ML PIGGYBACK IV ONE (21:30)
[2021-09-18] MEDS ORDERED: CEFEPIME HCL 1 G in IV DEXTROSE 5% 50 ML IV ONE (21:30)
[2021-09-18] MEDS ORDERED: ALPRAZOLAM 0.25 MG TABLET PO PRN (21:30)
[2021-09-18] MEDS ORDERED: VANCOMYCIN IV 750 MG in IV DEXTROSE 5% 150 ML IV ONE (21:30)
[2021-09-18] MEDS ORDERED: ONDANSETRON 4 MG/2 ML VIAL ONE (21:31)
--- NOTE | 2021-09-18 21:57 | NUR ---
Report given to Avis ALLISON Tele.
[2021-09-18 21:59] LABS: MEAN CORPUSCULAR HEMOGLOBIN 29.4 uug (24.7-32.8); PLATELET COUNT (AUTO) 276 K/uL (179-408)
[2021-09-18 22:12] LABS: BILIRUBIN,DIRECT 0.2 mg/dL (0.0-0.2); BILIRUBIN,TOTAL 0.5 mg/dL (0.2-1.0); CREATININE 0.8 mg/dL (0.6-1.3); TOTAL PROTEIN, SERUM 4.2 g/dL (6.4-8.2)
[2021-09-18 22:22] LABS: POTASSIUM 2.6 mmol/L (3.5-5.1)
[2021-09-18] MEDS ORDERED: MAGNESIUM OXIDE 400 MG TABLET PO ONE (22:30)
[2021-09-18] MEDS ORDERED: POTASSIUM CHLORIDE 20 MEQ TAB.PRT.SR PO ONE (22:30)
[2021-09-18] MEDS ORDERED: POTASSIUM CHLORIDE 20 MEQ TAB.PRT.SR ONE (22:37)
[2021-09-18] MEDS ORDERED: MAGNESIUM OXIDE 400 MG TABLET ONE (22:38)
[2021-09-18] MEDS ORDERED: CEFEPIME HCL 1 G VIAL ONE (22:39)
[2021-09-18] MEDS ORDERED: DOXYCYCLINE HYCLATE 100 MG INJ IV ONE (23:01)
[2021-09-18] MEDS ORDERED: METRONIDAZOLE 500 MG/NS 100ML 100 ML IV ONE (23:06)
[2021-09-18] MEDS ORDERED: VANCOMYCIN HCL 500 MG VIAL ONE (23:25)
[2021-09-19] VITALS: BP 121/65
--- NOTE | 2021-09-19 00:05 | NUR ---
Arrived via gurney, AO x 4, IV intact and patent, tolerating antibiotics well, on room air saturating at 96%, able to help reposition extremities, admission routine completed. No signs of acute distress. Call lights within reach, safety measures initiated.
[2021-09-19] MEDS: IV D5 1/2 NS 1000 ML 1,000 ML IV PRN ×2 (02:00→18:28)
[2021-09-19 04:15] VITALS: BP 117/67
[2021-09-19] MEDS: CULTURELLE CAPSULE PO SCH ×3 (05:18→21:35)
--- NOTE | 2021-09-19 06:26 | NUR ---
AO x 4, on room air O2 saturating at 97%, slept throughout the night, able to state needs and have been met, compliant with medication and care, no signs of acute distress noted, denies any discomfort and pain. Call lights within reach, safety measures maintained, belongings by bedside within reach. Will endorse to am shift
[2021-09-19] MEDS ORDERED: ACETAMINOPHEN 325 MG TABLET PO PRN (06:30)
[2021-09-19 06:45] LABS: HEMATOCRIT 30.8 % (31.2-41.9); MEAN CORPUSCULAR HEMOGLOBIN 29.5 uug (24.7-32.8); MEAN CORPUSCULAR VOLUME 87.8 fL (75.5-95.3); PLATELET COUNT (AUTO) 371 K/uL (179-408)
[2021-09-19 07:11] LABS: THYROID STIMULATING HORMONE 1.413 mIU/mL (0.358-3.740)
[2021-09-19 07:14] LABS: BILIRUBIN,TOTAL 0.4 mg/dL (0.2-1.0); CREATININE 0.9 mg/dL (0.6-1.3); MAGNESIUM 1.7 mg/dL (1.8-2.4); PHOSPHOROUS 3.6 mg/dL (2.5-4.9); POTASSIUM 3.7 mmol/L (3.5-5.1); TOTAL PROTEIN, SERUM 4.9 g/dL (6.4-8.2)
--- NOTE | 2021-09-19 08:00 | NUR ---
awake alert/oriented, denies of pain, no nausea, on full liquid, explained plan of care-verbalized understanding, safety measures maintained, call light within reach
[2021-09-19] MEDS ORDERED: VANCOMYCIN FOR PO/GT/NG USE PO ONE (09:00)
[2021-09-19] MEDS: PANTOPRAZOLE SODIUM 40 MG TABLET.DR PO SCH (09:16)
[2021-09-19] MEDS: CALCIUM CARBONATE 500 MG TAB.CHEW PO SCH (09:17)
[2021-09-19] MEDS: MAGNESIUM SULFATE/D5W 100 ML IV SCH ×2 (09:56→11:15)
[2021-09-19 11:31] VITALS: BP 110/54
[2021-09-19] MEDS: CALCIUM CARB/VITAMIN D 500MG-200UNITS TABLET PO SCH (13:48)
[2021-09-19] MEDS: Z GUARD REMEDY PASTE 57 GM TUBE TOP SCH ×2 (13:49→20:33)
[2021-09-19] MEDS: VANCOMYCIN FOR PO/GT/NG USE PO SCH ×3 (13:49→23:06)
[2021-09-19] MEDS: LIDOCAINE 5% PATCH TD SCH (13:53)
--- NOTE | 2021-09-19 14:00 | NUR ---
seen by Shanon DAVIS with orders
[2021-09-19] MEDS ORDERED: [UNRECOGNIZED DRUG - OTHER] RC SCH (14:15)
--- NOTE | 2021-09-19 14:55 | NUR ---
seen by Dr Toney
[2021-09-19] MEDS ORDERED: VANCOMYCIN FOR PO/GT/NG USE PO SCH (15:00)
[2021-09-19] MEDS: [UNRECOGNIZED DRUG - OTHER] PR SCH ×2 (15:00→21:36)
--- NOTE | 2021-09-19 15:10 | NUR ---
vancomycin retention enema given- pt tolerated well enteric precaution observed
[2021-09-19 15:38] VITALS: BP 115/66
[2021-09-19 16:06] LABS: *BILIRUBIN,URIN NEGATIVE (NEGATIVE); *BLOOD, URINE 1+ (NEGATIVE); *COLOR,URINE YELLOW (YELLOW); *KETONES,URINE NEGATIVE (NEGATIVE); *UROBILINOGEN,URINE 0.2 E.U./dl (NORMAL); LEUKOCYTE ESTERASE ,URINE NEGATIVE (NEGATIVE); NITRITE, URINE NEGATIVE (NEGATIVE); UGLUCOSE NEGATIVE (NEGATIVE)
[2021-09-19 16:16] LABS: *CLARITY,URINE SLIGHTLY HAZY (CLEAR)
[2021-09-19 16:17] LABS: BACTERIA,URINE FEW /HPF (NONE SEEN); SQUAMOUS EPITHELIAL CELL,UR FEW /HPF (NONE SEEN); YEAST,URINE FEW /HPF (NONE SEEN)
[2021-09-19] MEDS: DIFICID 200 MG TABLET PO SCH (17:05)
--- NOTE | 2021-09-19 18:52 | NUR ---
no distress noted, executive personal assistant at bedside, had 6 diarrheal stools this shift, stool for c diff sent this morning, all needs attended and met, enteric precautions observed, call light within reach
[2021-09-19] MEDS ORDERED: FLUCONAZOLE 200 MG/NS 100ML IV 200 MG in PREMIXED 1 EACH IV ONE ×2 (19:30→19:54)
--- NOTE | 2021-09-19 19:35 | NUR ---
AO x 4, on room air, IV intact and patent, running IV hydration and antibiotics, no signs of acute distress noted. Call lights within reach, safety measures initiated.
[2021-09-19 20:29] VITALS: BP 112/57
--- NOTE | 2021-09-19 22:00 | NUR ---
Vancomycin retention enema done and tolerated well.
[2021-09-19] MEDS: TEMAZEPAM 15 MG CAPSULE PO PRN (22:33)
[2021-09-19 23:47] VITALS: BP 111/59
[2021-09-20] MEDS: CULTURELLE CAPSULE PO SCH ×3 (05:28→22:18)
[2021-09-20] MEDS: VANCOMYCIN FOR PO/GT/NG USE PO SCH ×4 (05:28→23:45)
[2021-09-20] MEDS: [UNRECOGNIZED DRUG - OTHER] PR SCH ×3 (05:31→22:18)
[2021-09-20 06:18] VITALS: BP 114/64
[2021-09-20 06:41] LABS: HEMATOCRIT 27.2 % (31.2-41.9); MEAN CORPUSCULAR HEMOGLOBIN 29.8 uug (24.7-32.8); MEAN CORPUSCULAR VOLUME 87.4 fL (75.5-95.3); PLATELET COUNT (AUTO) 394 K/uL (179-408)
--- NOTE | 2021-09-20 06:45 | NUR ---
Slept intermittently, AO x 4, on room air saturating at 95%, IV intact and patent, running IV hydration, no signs of acute distress. Patient refuses 0600 Vancomycin retention enema. Requests to have it at 0800. Will endorse to am shift. Call lights within reach, safety measures maintained.
[2021-09-20 06:52] LABS: CREATININE 0.8 mg/dL (0.6-1.3); MAGNESIUM 2.1 mg/dL (1.8-2.4); PHOSPHOROUS 2.5 mg/dL (2.5-4.9)
[2021-09-20 06:56] LABS: POTASSIUM 2.8 mmol/L (3.5-5.1)
--- NOTE | 2021-09-20 08:00 | NUR ---
awake alert and oriented, denies of pain, no nuasea, still has diarrhea but not as frequent as before, states requested 0600 vancomycin retention enema given later- informed will give at 1000, explaiined plan fo care- verbalized understanding
[2021-09-20] MEDS ORDERED: POTASSIUM CHLORIDE 20 MEQ TAB.PRT.SR PO ONE (08:30)
[2021-09-20] MEDS ORDERED: DICYCLOMINE HCL 20 MG TABLET PO PRN (08:30)
[2021-09-20] MEDS: PANTOPRAZOLE SODIUM 40 MG TABLET.DR PO SCH (09:17)
[2021-09-20] MEDS: CALCIUM CARBONATE 500 MG TAB.CHEW PO SCH (09:18)
[2021-09-20] MEDS: DIFICID 200 MG TABLET PO SCH ×2 (09:18→20:12)
[2021-09-20] MEDS: Z GUARD REMEDY PASTE 57 GM TUBE TOP SCH ×2 (09:23→20:12)
--- NOTE | 2021-09-20 09:31 | NUR ---
vancomycin retention enema given- tolerated well, washed and cleansed area after and applied Z guard ointment, neds attended by nurses and ripening room operator
--- NOTE | 2021-09-20 10:00 | NUR ---
Bertin Mathurwh here and saw pt- spoke with pt =, caregiver at bedside
[2021-09-20] MEDS: IV D5 1/2 NS 1000 ML 1,000 ML IV PRN ×2 (10:07→23:51)
[2021-09-20] MEDS ORDERED: POTASSIUM PHOSPHATE MM 7.5 MMOL in IV NORMAL SALINE 97.5 ML IV ONE (11:00)
[2021-09-20 11:36] VITALS: BP 110/56
[2021-09-20] MEDS: CALCIUM CARB/VITAMIN D 500MG-200UNITS TABLET PO SCH (12:30)
[2021-09-20] MEDS: LIDOCAINE 5% PATCH TD SCH (14:00)
[2021-09-20 16:00] VITALS: BP 118/63
--- NOTE | 2021-09-20 17:20 | NUR ---
seen by Dr Toney
--- NOTE | 2021-09-20 18:36 | NUR ---
no distress noted, all needs attended and met, call light within reach, family was here earlier, caregiver at bedside
[2021-09-20 20:00] VITALS: BP 117/62
[2021-09-20] MEDS ORDERED: [UNRECOGNIZED DRUG - OTHER] PR SCH (21:00)
[2021-09-20] MEDS: TEMAZEPAM 15 MG CAPSULE PO PRN (23:45)
[2021-09-21 04:00] VITALS: BP 116/63
--- NOTE | 2021-09-21 05:14 | NUR ---
Pt slept throughout the night. Denies SOB or chest pain. Vanco enema done, patient tolerated well. Pt able to make needs known. IV site intact infusing ordered fluids. Safety and comfort provided. No other issues or concerns at this time.
[2021-09-21] MEDS: VANCOMYCIN FOR PO/GT/NG USE PO SCH ×4 (05:46→23:17)
[2021-09-21] MEDS: [UNRECOGNIZED DRUG - OTHER] PR SCH ×3 (05:47→22:18)
[2021-09-21] MEDS: CULTURELLE CAPSULE PO SCH ×3 (05:47→22:18)
--- NOTE | 2021-09-21 06:57 | NUR ---
Pictures taken of sacral region, patient denies having wounds and wanting pictures taken of feet.
[2021-09-21] MEDS: DIFICID 200 MG TABLET PO SCH ×2 (09:15→20:24)
[2021-09-21] MEDS: CALCIUM CARBONATE 500 MG TAB.CHEW PO SCH (09:15)
[2021-09-21] MEDS: PANTOPRAZOLE SODIUM 40 MG TABLET.DR PO SCH (09:15)
[2021-09-21] MEDS: Z GUARD REMEDY PASTE 57 GM TUBE TOP SCH ×2 (09:16→20:23)
[2021-09-21 12:00] VITALS: BP 126/56
[2021-09-21] MEDS: IV D5 1/2 NS 1000 ML 1,000 ML IV PRN (14:01)
[2021-09-21] MEDS: CALCIUM CARB/VITAMIN D 500MG-200UNITS TABLET PO SCH (14:01)
[2021-09-21] MEDS: LIDOCAINE 5% PATCH TD SCH (14:31)
[2021-09-21 16:00] VITALS: BP 128/64
[2021-09-21 20:00] VITALS: BP 122/59
[2021-09-21] MEDS: TEMAZEPAM 15 MG CAPSULE PO PRN (23:17)
[2021-09-22 04:00] VITALS: BP_SYST 60
--- NOTE | 2021-09-22 05:21 | NUR ---
Pt slept intermittently throughout the night. Denies chest pain or SOB. Episodes of diarrhea throughout shift. Vanco enema given to pt as ordered, tolerated well. Safety and comfort provided. No other issues or concerns at this time, will endorse to day shift.
[2021-09-22] MEDS: [UNRECOGNIZED DRUG - OTHER] PR SCH ×2 (05:33→14:00)
[2021-09-22] MEDS: CULTURELLE CAPSULE PO SCH (05:33)
[2021-09-22] MEDS: VANCOMYCIN FOR PO/GT/NG USE PO SCH ×2 (05:33→12:12)
[2021-09-22] MEDS: IV D5 1/2 NS 1000 ML 1,000 ML IV PRN (06:21)
[2021-09-22 06:48] LABS: MEAN CORPUSCULAR HEMOGLOBIN 29.7 uug (24.7-32.8); MEAN CORPUSCULAR VOLUME 87.7 fL (75.5-95.3); PLATELET COUNT (AUTO) 513 K/uL (179-408)
[2021-09-22 07:09] LABS: BILIRUBIN,TOTAL 0.4 mg/dL (0.2-1.0); CREATININE 0.8 mg/dL (0.6-1.3); MAGNESIUM 1.6 mg/dL (1.8-2.4); PHOSPHOROUS 2.8 mg/dL (2.5-4.9); TOTAL PROTEIN, SERUM 4.5 g/dL (6.4-8.2)
[2021-09-22 08:00] VITALS: BP 125/71
[2021-09-22 08:02] LABS: POTASSIUM 2.6 mmol/L (3.5-5.1)
[2021-09-22] MEDS: PANTOPRAZOLE SODIUM 40 MG TABLET.DR PO SCH (08:12)
[2021-09-22] MEDS: Z GUARD REMEDY PASTE 57 GM TUBE TOP SCH (08:12)
[2021-09-22] MEDS: CALCIUM CARBONATE 500 MG TAB.CHEW PO SCH (08:12)
[2021-09-22] MEDS: DIFICID 200 MG TABLET PO SCH (08:45)
[2021-09-22 11:39] VITALS: BP 119/58
[2021-09-22] MEDS: CALCIUM CARB/VITAMIN D 500MG-200UNITS TABLET PO SCH (12:12)
[2021-09-22] MEDS ORDERED: VANC250C5 PO (13:15)
[2021-09-22] MEDS ORDERED: POTASSIUM CHLORIDE 20 MEQ TAB.PRT.SR PO ONE (13:15)
[2021-09-22] MEDS ORDERED: LACT1CAP57 PO (13:15)
[2021-09-22] MEDS ORDERED: ALPR0.25 PO (13:15)
[2021-09-22] MEDS ORDERED: CALC-261 PO (13:15)
[2021-09-22] MEDS ORDERED: MAGNESIUM OXIDE 400 MG TABLET PO ONE (13:15)
[2021-09-22] MEDS ORDERED: POTA10CA43 PO (13:15)
[2021-09-22] MEDS ORDERED: MULT-594 PO (13:16)
[2021-09-22] MEDS ORDERED: VANC125C11 PO (13:26)
--- NOTE | 2021-09-22 14:52 | NUR ---
dc orders received noted and carried out,dc heplock per md orders.dc instruction given to the pt and her daughter pt left the facility via private car in stable condition
== END 2021-09-22 14:45 | disposition home health service (06) | DRG 871 ==
LOC: ER 16:29 → TELE3 23:51 → MEDSURG3 09-20 10:19
PROVIDERS: ADMIT Internal Medicine; ATTEND Internal Medicine
DX: A41.9 Sepsis, unspecified organism (principal); E43 Unspecified severe protein-calorie malnutrition; A04.9 Bacterial intestinal infection, unspecified; A04.72 Enterocolitis due to Clostridium difficile, not specified as recurrent; D68.59 Other primary thrombophilia; J90 Pleural effusion, not elsewhere classified; R18.8 Other ascites; B48.8 Other specified mycoses; K62.89 Other specified diseases of anus and rectum; D64.9 Anemia, unspecified; E87.6 Hypokalemia; K82.9 Disease of gallbladder, unspecified; R62.7 Adult failure to thrive; Z82.49 Family history of ischemic heart disease and other diseases of the circulatory system; K31.89 Other diseases of stomach and duodenum; D16.9 Benign neoplasm of bone and articular cartilage, unspecified
CPT/HCPCS: 36415; 70030-TC; 71045; 71275; 83550; 83605; 83735; 84100; 84443; 85025; 85610; 86140; 87040; 87086; 93005; 97161; A4217; A4663; A6209; G0378; J0692; J1450; J1720; J2060; J2405; J3370; J3475; J3490; J7030; J7050; J7060; Q9967